=== PATIENT | female | born 1990 | race African-American/Black ===

== ENCOUNTER 2025-01-15 12:41 | Emergency (ER) | payer OTHER ==
[~2025-01-15] VITALS: Ht 175.3 cm; Wt 108.9 kg
[2025-01-15] MEDS ORDERED: LEVE500T9 PO (13:36)
[2025-01-15 13:38] LABS: CALCIUM, SERUM 9.7 mg/dL (8.5-10.1); CREATININE 0.9 mg/dL (0.6-1.3); SODIUM SERUM 141.0 mmol/L (136-145); UREA NITROGEN, BLOOD 10.0 mg/dL (7-18)
[2025-01-15] MEDS: IV NS 0.9% 500 ML BAG IV ONE (13:38)
[2025-01-15] MEDS: LEVETIRACETAM (500MG) 1,000 MG in IV NS 0.9% 90 ML IV SCH (13:38)
[2025-01-15 13:45] LABS: PLATELET COUNT (AUTO) 393 K/uL (150-450); RED BLOOD CELL COUNT(AUTO) 3.73 MIL/uL (4.0-5.2); RED CELL DISTRIBUTION WIDTH 14.0 % (11.5-15.0); WHITE BLOOD COUNT (AUTO) 7.7 K/uL (4.3-11.0)
[2025-01-15 15:39] LABS: ALCOHOL, BLOOD < 3 mg/dL (0-10)
[2025-01-15 15:50] LABS: ASPARTATE AMINOTRANSFERASE 29 U/L (15-37); TOTAL PROTEIN, SERUM 7.9 g/dL (6.4-8.2)
[2025-01-15 15:59] VITALS: BP 134/77; TEMP 98.6; O2SAT 98
== END 2025-01-15 16:01 | disposition home or self-care (01) ==
LOC: ER 13:23
DX: G40.909 Epilepsy, unspecified, not intractable, without status epilepticus (principal); R10.2 Pelvic and perineal pain; I10 Essential (primary) hypertension; J45.909 Unspecified asthma, uncomplicated; Z59.00 Homelessness unspecified; Z91.148 Patient's other noncompliance with medication regimen for other reason; Z20.822 Contact with and (suspected) exposure to COVID-19
CPT/HCPCS: 99285; 96365; 85025; 80048; 80076; 36415; 84702; 87426; 80143; 80320; J7030; J7040; A4223; J1953; G0480